=== PATIENT | male | born 1960 | race Caucasian/White ===

== ENCOUNTER 2020-12-02 19:02 | Inpatient (IN) | payer OTHER ==
[2020-12-02 20:06] LABS: #Basophils 0.1 10x3/uL (0.0-0.2); #Eosinphils 0.5 10x3/uL (0.0-0.5); #Monocytes 1.1 10x3/uL (0.0-1.1); #Neutrophils 8.6 10x3/uL (1.5-8.4); %Basophils 1.1 % (0.0-2.0); %Eosinophils 3.7 % (0.0-6.0); %Lymphocytes 15.1 % (18.0-47.0); Mean Corpuscular Hemoglobin 28.5 pg (27.0-33.0); Mean Corpuscular Volume 83.7 fl (81.2-95.1); Mean Platelet Volume 8.7 fl (7.4-10.4); Platelet Count 292 10x3/uL (150-450); RBC Distribution Width 12.7 % (11.5-14.5); Red Blood Cell (RBC) Count 4.92 10x6/uL (4.32-5.72); White Blood Cell (WBC) Count 12.3 10x3/uL (3.5-10.5)
[2020-12-02 20:24] LABS: ALT (SGPT) 18 U/L (8-55); AST (SGOT) 13 U/L (5-34); Albumin 3.9 g/dL (3.4-4.8); Alkaline Phosphatase 76 U/L (40-110); Anion Gap 16 mmol/L (10-20); BUN (Urea Nitrogen) 16 mg/dL (8.4-25.7); Bilirubin, Total 0.8 mg/dL (0.2-1.2); Calc. Creatinine Clearance 0 mL/min (70-130); Calcium 9.9 mg/dL (7.8-10.44); Carbon Dioxide 22 mmol/L (23-31); Chloride 103 mmol/L (98-107); Globulin 3.5 g/dL (2.4-3.5); Glucose 125 mg/dL (80-115); Potassium 3.8 mmol/L (3.5-5.1); Protein, Total 7.4 g/dL (5.8-8.1); Sodium 137 mmol/L (136-145)
[2020-12-02] MEDS ORDERED: Cefepime 2 GM VIAL ONE (20:56)
[2020-12-02] MEDS ORDERED: Senokot S 8.6-50 MG TAB PO PRN (22:03)
[2020-12-02] MEDS ORDERED: Dextrose 50% Abboject 50 ML SYRINGE SLOW IVP PRN (22:09)
[2020-12-02] MEDS ORDERED: Dextrose 5% in Water 1,000 ML IV PRN (22:09)
[2020-12-02] MEDS ORDERED: Insulin Regular 300 UNITS/3 ML VIAL SC PRN (22:09)
[2020-12-02] MEDS ORDERED: HumaLOG 300 UNITS/3 ML VIAL SC PRN (22:09)
[2020-12-03] MEDS: Sodium Chloride 0.9% 1,000 ML IV SCH ×2 (01:29→18:10)
[2020-12-03] MEDS ORDERED: FLU VACC QS2021-22(6MOS UP)/PF 60 MCG/0.5 ML SYRINGE IM ONE (02:30)
[2020-12-03 05:34] LABS: #Basophils 0.1 10x3/uL (0.0-0.2); #Eosinphils 0.4 10x3/uL (0.0-0.5); #Neutrophils 7.6 10x3/uL (1.5-8.4); %Eosinophils 3.6 % (0.0-6.0); %Lymphocytes 12.4 % (18.0-47.0); %Monocytes 9.5 % (0.0-10.0); %Neutrophils 72.1 % (40.0-75.0); Hemoglobin 13.6 g/dL (13.5-17.5); Mean Corpuscular HGB CONC 33.9 g/dL (32.0-36.0); Mean Corpuscular Hemoglobin 28.8 pg (27.0-33.0); Platelet Count 276 10x3/uL (150-450); RBC Distribution Width 12.5 % (11.5-14.5); Red Blood Cell (RBC) Count 4.72 10x6/uL (4.32-5.72); White Blood Cell (WBC) Count 10.5 10x3/uL (3.5-10.5)
[2020-12-03 05:57] LABS: Anion Gap 15 mmol/L (10-20); BUN (Urea Nitrogen) 13 mg/dL (8.4-25.7); Calc. Creatinine Clearance 208 mL/min (70-130); Calcium 9.1 mg/dL (7.8-10.44); Carbon Dioxide 25 mmol/L (23-31); Chloride 103 mmol/L (98-107); Glucose 164 mg/dL (80-115); Magnesium 1.6 mg/dL (1.6-2.6); Potassium 4.2 mmol/L (3.5-5.1); Sodium 139 mmol/L (136-145)
[2020-12-03] MEDS: HYDROcodone/Acetaminophen 5/325 mg Tablet PO PRN (06:39)
[2020-12-03] MEDS: metFORMIN 500 MG TAB PO SCH ×2 (06:40→17:30)
[2020-12-03] MEDS ORDERED: Enoxaparin Sodium 40 MG/0.4 ML SYRINGE SC SCH ×2 (09:00→11:00)
[2020-12-03] MEDS: Multivit, Therapeutic 1 TAB PO SCH (09:43)
[2020-12-03] MEDS: glipiZIDE 5 MG TAB PO SCH ×2 (09:43→20:24)
[2020-12-03] MEDS: VANCOMYCIN 2 GRAM/400 ML BAG 2 GM in Premix Bag 1 BAG IVPB SCH ×2 (09:44→20:24)
[2020-12-03] MEDS: Cefepime 2 GM in Sodium Chloride 0.9% 100 ML IVPB SCH ×2 (09:44→20:25)
[2020-12-03] MEDS: Acetaminophen 325 MG TAB PO PRN (12:37)
[2020-12-03 16:49] LABS: SARS-CoV-2 PCR by NAA Not Detected (NotDetected)
[2020-12-03] MEDS ORDERED: hydrALAZINE 20 MG/ML VIAL SLOW IVP PRN (17:46)
[2020-12-03] MEDS: Amlodipine 5 MG TAB PO SCH (20:23)
[2020-12-04] MEDS: HYDROcodone/Acetaminophen 5/325 mg Tablet PO PRN ×3 (06:38→17:50)
[2020-12-04] MEDS: metFORMIN 500 MG TAB PO SCH ×2 (06:38→17:50)
[2020-12-04] MEDS: Sodium Chloride 0.9% 1,000 ML IV SCH ×2 (06:39→18:42)
[2020-12-04 08:22] LABS: #Basophils 0.1 10x3/uL (0.0-0.2); #Eosinphils 0.5 10x3/uL (0.0-0.5); #Monocytes 1.1 10x3/uL (0.0-1.1); #Neutrophils 6.6 10x3/uL (1.5-8.4); %Basophils 0.8 % (0.0-2.0); %Eosinophils 5.2 % (0.0-6.0); %Lymphocytes 17.1 % (18.0-47.0); %Monocytes 10.4 % (0.0-10.0); %Neutrophils 65.3 % (40.0-75.0); Hemoglobin 13.5 g/dL (13.5-17.5); Mean Corpuscular HGB CONC 33.4 g/dL (32.0-36.0); Mean Corpuscular Hemoglobin 28.5 pg (27.0-33.0); Mean Corpuscular Volume 85.2 fl (81.2-95.1); Mean Platelet Volume 8.7 fl (7.4-10.4); Platelet Count 267 10x3/uL (150-450); RBC Distribution Width 12.6 % (11.5-14.5); Red Blood Cell (RBC) Count 4.74 10x6/uL (4.32-5.72); White Blood Cell (WBC) Count 10.1 10x3/uL (3.5-10.5)
[2020-12-04 08:36] LABS: ALT (SGPT) 17 U/L (8-55); AST (SGOT) 13 U/L (5-34); Albumin 3.6 g/dL (3.4-4.8); Alkaline Phosphatase 67 U/L (40-110); Anion Gap 15 mmol/L (10-20); BUN (Urea Nitrogen) 10 mg/dL (8.4-25.7); Bilirubin, Total 0.7 mg/dL (0.2-1.2); Calc. Creatinine Clearance 235 mL/min (70-130); Carbon Dioxide 24 mmol/L (23-31); Chloride 105 mmol/L (98-107); Globulin 2.5 g/dL (2.4-3.5); Glucose 156 mg/dL (80-115); Magnesium 1.7 mg/dL (1.6-2.6); Phosphorus 3.3 mg/dL (2.3-4.7); Potassium 4.3 mmol/L (3.5-5.1); Protein, Total 6.1 g/dL (5.8-8.1); Sodium 140 mmol/L (136-145)
[2020-12-04] MEDS: Multivit, Therapeutic 1 TAB PO SCH (08:46)
[2020-12-04] MEDS: VANCOMYCIN 2 GRAM/400 ML BAG 2 GM in Premix Bag 1 BAG IVPB SCH ×2 (08:46→20:50)
[2020-12-04] MEDS: glipiZIDE 5 MG TAB PO SCH ×2 (08:46→20:45)
[2020-12-04 08:51] LABS: Vancomycin, Trough 16.8 ug/mL
[2020-12-04] MEDS ORDERED: Enoxaparin Sodium 40 MG/0.4 ML SYRINGE SC SCH (09:00)
[2020-12-04 10:49] LABS: Hemoglobin A1c 6.9 % (4.0-6.0)
[2020-12-04] MEDS: Cefepime 2 GM in Sodium Chloride 0.9% 100 ML IVPB SCH ×2 (12:04→20:45)
[2020-12-04] MEDS: Amlodipine 5 MG TAB PO SCH (20:46)
[2020-12-05] MEDS: Sodium Chloride 0.9% 1,000 ML IV SCH ×2 (03:14→19:54)
[2020-12-05] MEDS: Acetaminophen 325 MG TAB PO PRN ×2 (05:58→12:21)
[2020-12-05 06:38] LABS: #Basophils 0.1 10x3/uL (0.0-0.2); #Eosinphils 0.5 10x3/uL (0.0-0.5); #Monocytes 0.8 10x3/uL (0.0-1.1); #Neutrophils 5.5 10x3/uL (1.5-8.4); %Basophils 0.9 % (0.0-2.0); %Monocytes 9.2 % (0.0-10.0); %Neutrophils 64.7 % (40.0-75.0); Hemoglobin 13.1 g/dL (13.5-17.5); Mean Corpuscular HGB CONC 33.4 g/dL (32.0-36.0); Mean Corpuscular Hemoglobin 28.2 pg (27.0-33.0); Mean Corpuscular Volume 84.5 fl (81.2-95.1); Mean Platelet Volume 8.6 fl (7.4-10.4); Platelet Count 271 10x3/uL (150-450); RBC Distribution Width 12.6 % (11.5-14.5); Red Blood Cell (RBC) Count 4.64 10x6/uL (4.32-5.72); White Blood Cell (WBC) Count 8.5 10x3/uL (3.5-10.5)
[2020-12-05 07:05] LABS: ALT (SGPT) 18 U/L (8-55); AST (SGOT) 14 U/L (5-34); Albumin 3.5 g/dL (3.4-4.8); Alkaline Phosphatase 59 U/L (40-110); Anion Gap 16 mmol/L (10-20); BUN (Urea Nitrogen) 11 mg/dL (8.4-25.7); Bilirubin, Total 0.7 mg/dL (0.2-1.2); Calc. Creatinine Clearance 238 mL/min (70-130); Calcium 9.1 mg/dL (7.8-10.44); Carbon Dioxide 22 mmol/L (23-31); Chloride 105 mmol/L (98-107); Globulin 2.3 g/dL (2.4-3.5); Glucose 147 mg/dL (80-115); Magnesium 1.7 mg/dL (1.6-2.6); Phosphorus 3.5 mg/dL (2.3-4.7); Potassium 4.4 mmol/L (3.5-5.1); Protein, Total 5.8 g/dL (5.8-8.1); Sodium 139 mmol/L (136-145)
[2020-12-05] MEDS: metFORMIN 500 MG TAB PO SCH ×2 (09:02→17:19)
[2020-12-05] MEDS: Cefepime 2 GM in Sodium Chloride 0.9% 100 ML IVPB SCH ×2 (09:03→21:21)
[2020-12-05] MEDS: Multivit, Therapeutic 1 TAB PO SCH (09:03)
[2020-12-05] MEDS: VANCOMYCIN 2 GRAM/400 ML BAG 2 GM in Premix Bag 1 BAG IVPB SCH ×2 (09:52→21:52)
[2020-12-05] MEDS ORDERED: Lidocaine 1% PF 5 ML VIAL ONE (13:12)
[2020-12-05] MEDS ORDERED: PROPOFOL 20 ML ONE (13:12)
[2020-12-05] MEDS ORDERED: Fentanyl 100 MCG/2 ML VIAL ONE ×2 (13:13→15:10)
[2020-12-05] MEDS ORDERED: SUGAMMADEX SODIUM 200 MG/2 ML VIAL ONE (13:28)
[2020-12-05] MEDS ORDERED: Midazolam HCl 2 mg/2 ml Vial ONE (13:48)
[2020-12-05] MEDS ORDERED: Bupivacaine PF 0.5% 30 ML VIAL ONE (14:00)
[2020-12-05] MEDS ORDERED: Ondansetron PF 4 MG/2 ML Vial ONE (14:32)
[2020-12-05] MEDS ORDERED: diphenhydrAMINE 50 MG/ML VIAL ONE (14:32)
[2020-12-05] MEDS ORDERED: Labetalol HCl 100 MG/20 ML VIAL ONE (14:54)
[2020-12-05] MEDS: Morphine 4 MG/ML VIAL SLOW IVP PRN ×2 (16:21→21:16)
[2020-12-05] MEDS: Amlodipine 5 MG TAB PO SCH (21:14)
[2020-12-05 21:19] LABS: Vancomycin, Trough 13.3 ug/mL
[2020-12-05] MEDS: HYDROcodone/Acetaminophen 5/325 mg Tablet PO PRN (21:57)
[2020-12-06] MEDS: HYDROcodone/Acetaminophen 5/325 mg Tablet PO PRN (04:06)
[2020-12-06] MEDS: Sodium Chloride 0.9% 1,000 ML IV SCH ×2 (04:08→20:10)
[2020-12-06 04:45] LABS: #Basophils 0.1 10x3/uL (0.0-0.2); #Eosinphils 0.4 10x3/uL (0.0-0.5); #Monocytes 0.9 10x3/uL (0.0-1.1); %Basophils 0.9 % (0.0-2.0); %Eosinophils 3.6 % (0.0-6.0); %Lymphocytes 15.9 % (18.0-47.0); %Monocytes 8.6 % (0.0-10.0); %Neutrophils 70.1 % (40.0-75.0); Hemoglobin 13.6 g/dL (13.5-17.5); Mean Corpuscular HGB CONC 33.3 g/dL (32.0-36.0); Mean Corpuscular Hemoglobin 28.3 pg (27.0-33.0); Mean Corpuscular Volume 85.2 fl (81.2-95.1); Mean Platelet Volume 8.4 fl (7.4-10.4); Platelet Count 268 10x3/uL (150-450); RBC Distribution Width 12.4 % (11.5-14.5)
[2020-12-06 05:08] LABS: ALT (SGPT) 34 U/L (8-55); AST (SGOT) 25 U/L (5-34); Albumin 3.7 g/dL (3.4-4.8); Alkaline Phosphatase 68 U/L (40-110); Anion Gap 14 mmol/L (10-20); BUN (Urea Nitrogen) 10 mg/dL (8.4-25.7); Bilirubin, Total 0.7 mg/dL (0.2-1.2); Calc. Creatinine Clearance 223 mL/min (70-130); Calcium 8.4 mg/dL (7.8-10.44); Carbon Dioxide 25 mmol/L (23-31); Chloride 104 mmol/L (98-107); Globulin 2.6 g/dL (2.4-3.5); Glucose 153 mg/dL (80-115); Magnesium 1.8 mg/dL (1.6-2.6); Phosphorus 3.3 mg/dL (2.3-4.7); Potassium 4.1 mmol/L (3.5-5.1); Protein, Total 6.3 g/dL (5.8-8.1); Sodium 139 mmol/L (136-145)
[2020-12-06] MEDS ORDERED: HYDROmorphone 2 MG TAB PO PRN (08:40)
[2020-12-06] MEDS: metFORMIN 500 MG TAB PO SCH ×2 (08:42→16:43)
[2020-12-06] MEDS: Multivit, Therapeutic 1 TAB PO SCH (08:42)
[2020-12-06] MEDS: Cefepime 2 GM in Sodium Chloride 0.9% 100 ML IVPB SCH ×2 (08:44→20:11)
[2020-12-06 09:37] VITALS: BMI 46.6
[2020-12-06] MEDS: oxyCODONE 5 MG TAB PO PRN ×3 (09:44→20:11)
[2020-12-06] MEDS: VANCOMYCIN 2 GRAM/400 ML BAG 2 GM in Premix Bag 1 BAG IVPB SCH ×2 (09:45→20:11)
[2020-12-06] MEDS: Amlodipine 5 MG TAB PO SCH (20:10)
[2020-12-06] MEDS: glipiZIDE 5 MG TAB PO SCH (20:12)
[2020-12-07] MEDS: oxyCODONE 5 MG TAB PO PRN (00:03)
[2020-12-07 05:21] LABS: #Basophils 0.1 10x3/uL (0.0-0.2); #Eosinphils 0.4 10x3/uL (0.0-0.5); #Monocytes 0.9 10x3/uL (0.0-1.1); #Neutrophils 7.7 10x3/uL (1.5-8.4); %Lymphocytes 15.6 % (18.0-47.0); %Monocytes 8.2 % (0.0-10.0); %Neutrophils 70.2 % (40.0-75.0); Hemoglobin 13.4 g/dL (13.5-17.5); Mean Corpuscular HGB CONC 33.5 g/dL (32.0-36.0); Mean Corpuscular Hemoglobin 28.2 pg (27.0-33.0); Mean Corpuscular Volume 84.2 fl (81.2-95.1); Mean Platelet Volume 8.3 fl (7.4-10.4); Platelet Count 274 10x3/uL (150-450); RBC Distribution Width 12.5 % (11.5-14.5); Red Blood Cell (RBC) Count 4.75 10x6/uL (4.32-5.72); White Blood Cell (WBC) Count 10.9 10x3/uL (3.5-10.5)
[2020-12-07 05:36] LABS: ALT (SGPT) 38 U/L (8-55); AST (SGOT) 24 U/L (5-34); Albumin 3.7 g/dL (3.4-4.8); Alkaline Phosphatase 69 U/L (40-110); Anion Gap 14 mmol/L (10-20); BUN (Urea Nitrogen) 9 mg/dL (8.4-25.7); Bilirubin, Total 0.8 mg/dL (0.2-1.2); Calc. Creatinine Clearance 248 mL/min (70-130); Calcium 8.5 mg/dL (7.8-10.44); Carbon Dioxide 24 mmol/L (23-31); Chloride 106 mmol/L (98-107); Globulin 2.7 g/dL (2.4-3.5); Glucose 153 mg/dL (80-115); Magnesium 1.7 mg/dL (1.6-2.6); Phosphorus 3.3 mg/dL (2.3-4.7); Protein, Total 6.4 g/dL (5.8-8.1); Sodium 140 mmol/L (136-145)
[2020-12-07] MEDS: metFORMIN 500 MG TAB PO SCH (08:12)
[2020-12-07] MEDS: Multivit, Therapeutic 1 TAB PO SCH (08:13)
[2020-12-07] MEDS: Cefepime 2 GM in Sodium Chloride 0.9% 100 ML IVPB SCH (08:13)
[2020-12-07] MEDS: glipiZIDE 5 MG TAB PO SCH (08:13)
[2020-12-07] MEDS: Sodium Chloride 0.9% 1,000 ML IV SCH (08:50)
[2020-12-07] MEDS ORDERED: Enoxaparin Sodium 40 MG/0.4 ML SYRINGE SC SCH (09:00)
[2020-12-07] MEDS: VANCOMYCIN 2 GRAM/400 ML BAG 2 GM in Premix Bag 1 BAG IVPB SCH (09:08)
[2020-12-07] MEDS: Acetaminophen 325 MG TAB PO PRN (09:24)
[2020-12-07 11:35] LABS: Hemoglobin A1c 6.9 % (4.0-6.0)
[2020-12-07 12:22] VITALS: BP 157/74; TEMP 98
== END 2020-12-07 13:13 | disposition home or self-care (01) | DRG 854 ==
LOC: CSHERS 19:02 → CSHTELE 22:34 → OBSVTOIN 22:35 → CSHTELE 12-03 00:29
PROVIDERS: ADMIT Family Medicine; ATTEND Family Medicine
PROC: 0Y6P0Z0 Detachment at Right 1st Toe, Complete, Open Approach (ICD-10-PCS; principal; 2020-12-05)
DX: A41.9 Sepsis, unspecified organism (principal); M86.171 Other acute osteomyelitis, right ankle and foot; M84.477A Pathological fracture, right toe(s), initial encounter for fracture; Z68.42 Body mass index [BMI] 45.0-49.9, adult; E11.52 Type 2 diabetes mellitus with diabetic peripheral angiopathy with gangrene; I70.261 Atherosclerosis of native arteries of extremities with gangrene, right leg; E11.69 Type 2 diabetes mellitus with other specified complication; E11.42 Type 2 diabetes mellitus with diabetic polyneuropathy; L03.031 Cellulitis of right toe; Z20.822 Contact with and (suspected) exposure to COVID-19; I10 Essential (primary) hypertension; E66.01 Morbid (severe) obesity due to excess calories; J45.20 Mild intermittent asthma, uncomplicated; Z79.84 Long term (current) use of oral hypoglycemic drugs; Z79.899 Other long term (current) drug therapy; Z83.3 Family history of diabetes mellitus; Z80.8 Family history of malignant neoplasm of other organs or systems; L97.519 Non-pressure chronic ulcer of other part of right foot with unspecified severity; Z88.2 Allergy status to sulfonamides
CPT/HCPCS: 36415; 36416; 80048; 80053; 80202; 83036; 83735; 84100; 85025; 85652; 86140; 87040; 87081; 88305; 93005; 93010; 93923; 96374; 96375; J0692; J1200; J1650; J1815; J2250; J2270; J2405; J2704; J3010; J3370; J3490; J7050; S0020; U0003; U0005

== ENCOUNTER 2022-12-05 12:52 | Outpatient (CLI) | payer OTHER ==
[2022-12-05 13:55] LABS: Hematocrit 46.6 % (38.8-50.0); Hemoglobin 15.5 g/dL (13.5-17.5); Mean Corpuscular HGB CONC 33.3 g/dL (32.0-36.0); Mean Corpuscular Volume 87.1 fl (81.2-95.1); Mean Platelet Volume 9.1 fl (7.4-10.4); Platelet Count 294 10x3/uL (150-450); RBC Distribution Width 12.9 % (11.5-14.5); Red Blood Cell (RBC) Count 5.35 10x6/uL (4.32-5.72); White Blood Cell (WBC) Count 10.2 10x3/uL (3.5-10.5)
[2022-12-05 14:04] LABS: Anion Gap 16 mmol/L (10-20); BUN (Urea Nitrogen) 14 mg/dL (8.4-25.7); Calc. Creatinine Clearance 0 mL/min (70-130); Carbon Dioxide 21 mmol/L (23-31); Chloride 106 mmol/L (98-107); Estimated GFR 99; Glucose 128 mg/dL (80-115); Potassium 4.2 mmol/L (3.5-5.1); Sodium 139 mmol/L (136-145)
== END 2022-12-05 12:53 | disposition home or self-care (01) ==
LOC: CSHLAB 12:52
PROVIDERS: ATTEND Podiatrist Foot & Ankle Surgery
DX: Z01.818 Encounter for other preprocedural examination (principal); L97.519 Non-pressure chronic ulcer of other part of right foot with unspecified severity
CPT/HCPCS: 80048; 85027; 93005; 93010

== ENCOUNTER 2022-12-12 11:22 | Day surgery (SDC) | payer OTHER ==
[2022-12-05 13:30] VITALS: BMI 39.2
[~2022-12-12 11:22] MED LIST: Bupivacaine PF 0.5% 30 ML VIAL ONE
[2022-12-12] MEDS ORDERED: CEFAZOLIN 2 GM VIAL ONE (11:59)
[2022-12-12] MEDS ORDERED: Lidocaine 2% PF 5 ML VIAL ONE (12:31)
[2022-12-12] MEDS ORDERED: PROPOFOL 20 ML ONE ×2 (12:31→12:34)
[2022-12-12] MEDS ORDERED: Ondansetron PF 4 MG/2 ML Vial ONE (12:41)
[2022-12-12] MEDS ORDERED: Midazolam HCl 2 mg/2 ml Vial ONE (12:42)
== END 2022-12-12 14:30 | disposition home or self-care (01) ==
LOC: CSHSDC 11:22
PROVIDERS: ATTEND Podiatrist Foot & Ankle Surgery
PROC: 0Y6R0Z0 Detachment at Right 2nd Toe, Complete, Open Approach (ICD-10-PCS; principal; 2022-12-12)
DX: L97.912 Non-pressure chronic ulcer of unspecified part of right lower leg with fat layer exposed (principal); I10 Essential (primary) hypertension; E11.9 Type 2 diabetes mellitus without complications; J45.909 Unspecified asthma, uncomplicated; Z88.2 Allergy status to sulfonamides
CPT/HCPCS: 36416; J2001; J2250; J2405; J2704; S0020